=== PATIENT | male | born 1970 | race Caucasian/White ===

== ENCOUNTER → 2020-06-01 | Outpatient (CLI) | payer BC, OTHER | LOC: KOH-I 11:27 | DX: J45.909 Unspecified asthma, uncomplicated (principal) | CPT/HCPCS: 71046 ==

== ENCOUNTER → 2020-08-09 | Outpatient (CLI) | payer BC, OTHER | LOC: KOH-I 15:39 | DX: M62.81 Muscle weakness (generalized) (principal); M79.601 Pain in right arm; S49.91XA Unspecified injury of right shoulder and upper arm, initial encounter | CPT/HCPCS: 73000; 73030 ==

== ENCOUNTER → 2020-08-17 | Outpatient (CLI) | payer BC, OTHER | LOC: EMI 13:29 | DX: M25.511 Pain in right shoulder (principal); M19.011 Primary osteoarthritis, right shoulder; M75.111 Incomplete rotator cuff tear or rupture of right shoulder, not specified as traumatic; M67.813 Other specified disorders of tendon, right shoulder | CPT/HCPCS: 73221 ==

== ENCOUNTER → 2021-02-10 | Outpatient (CLI) | payer BC | LOC: KOH-I 09:01 | DX: U07.1 COVID-19 (principal) | CPT/HCPCS: 71046 ==

== ENCOUNTER → 2021-03-30 | Outpatient (CLI) | payer BC | LOC: EMI 09:54 | DX: M54.2 Cervicalgia (principal); M48.02 Spinal stenosis, cervical region | CPT/HCPCS: 72141 ==